=== PATIENT | female | born 1960 | race African-American/Black ===

== ENCOUNTER 2020-09-20 09:36 | Day surgery (SDC) | payer MEDICARE ==
[2020-09-20] MEDS ORDERED: Decadron 4 MG INJ IV ONE (09:37)
[2020-09-20] MEDS ORDERED: LIDOCAINE HCL 2% 100 MG/5 ML IJ ONE (09:37)
[2020-09-20] MEDS ORDERED: DIPRIVAN 200 MG/20 ML IV ONE ×2 (10:00→10:53)
--- NOTE | 2020-09-20 11:29 | XRAY ---
Indication: Left C2-C4 MBB. Intraoperative fluoroscopy provided for 25 seconds. 2 digital spot images submitted for interpretation demonstrates posterior needle tips projecting over the expected left C2-C4 nerve roots. Correlate with intraoperative findings/report.
--- NOTE | 2020-09-20 11:39 | XRAY ---
25 seconds fluoroscopy time in surgery for C2-C4 MBB.
[2020-09-20] MEDS ORDERED: Lactated Ringers 1,000 ML IV ONE (16:09)
== END 2020-09-20 11:21 | disposition home or self-care (01) ==
LOC: SDC-PAIN 09:36
PROVIDERS: ATTEND Psychiatry & Neurology Pain Medicine
DX: M47.812 Spondylosis without myelopathy or radiculopathy, cervical region (principal); E11.9 Type 2 diabetes mellitus without complications; J44.9 Chronic obstructive pulmonary disease, unspecified; E78.5 Hyperlipidemia, unspecified; M79.7 Fibromyalgia; G47.00 Insomnia, unspecified; Z79.899 Other long term (current) drug therapy
CPT/HCPCS: 64490; 64491; 72040; 77002; 82947; J1100; J2704

== ENCOUNTER 2023-05-28 09:27 | Day surgery (SDC) | payer MEDICARE ==
[2023-05-28] MEDS ORDERED: Decadron 4 MG INJ IV ONE (09:28)
[2023-05-28] MEDS ORDERED: Sodium Chloride 0.9(Preservative Free) 10 ML IJ ONE (09:28)
[2023-05-28] MEDS ORDERED: DIPRIVAN 200 MG/20 ML IV ONE (10:53)
[2023-05-28] MEDS ORDERED: Lactated Ringers 1,000 ML IV ONE (11:20)
--- NOTE | 2023-05-28 12:17 | XRAY ---
Indication: Left L4-S1 transforaminal ARSEN. Intraoperative fluoroscopy provided for 39 seconds. 4 digital spot image submitted for interpretation demonstrates posterior needle tips projecting overexpanded left L4 and L5 nerve roots. Small amount of contrast injected for needle tip placement. Correlate with intraoperative findings/report.
--- NOTE | 2023-05-28 12:21 | XRAY ---
39 seconds of fluoroscopy was used in surgery for a left L4-S1 transforaminal ARSEN.
== END 2023-05-28 11:24 | disposition home or self-care (01) ==
LOC: SDC-PAIN 09:27
PROVIDERS: ATTEND Psychiatry & Neurology Pain Medicine
DX: M54.16 Radiculopathy, lumbar region (principal); Z79.899 Other long term (current) drug therapy
CPT/HCPCS: 64483; 64484; 72100; 77003; J1100; J2704; Q9966

== ENCOUNTER 2023-07-09 11:12 | Day surgery (SDC) | payer MEDICARE ==
[2023-07-09] MEDS ORDERED: LIDOCAINE HCL 2% 100 MG/5 ML IJ ONE (11:13)
[2023-07-09] MEDS ORDERED: Lactated Ringers 1,000 ML IV ONE (13:52)
[2023-07-09] MEDS ORDERED: DIPRIVAN 200 MG/20 ML IV ONE (14:14)
--- NOTE | 2023-07-09 15:17 | XRAY ---
Indication: Bilateral L4-S1 MBB. Intraoperative fluoroscopy provided 15 seconds. 2 digital spot image submitted for interpretation demonstrates posterior needle tips projecting over the expected left and right L4-S1 nerve roots. Correlate with intraoperative findings/report.
--- NOTE | 2023-07-09 16:42 | XRAY ---
15 seconds of fluoroscopy was used in surgery for a bilateral L4-S1 MBB.
== END 2023-07-09 14:42 | disposition home or self-care (01) ==
LOC: SDC-PAIN 11:12
PROVIDERS: ATTEND Psychiatry & Neurology Pain Medicine
DX: M47.816 Spondylosis without myelopathy or radiculopathy, lumbar region (principal)
CPT/HCPCS: 64493; 64494; 72020; 77002; J2704

== ENCOUNTER 2023-08-20 13:35 | Day surgery (SDC) | payer MEDICARE ==
[2023-08-20] MEDS ORDERED: BUPIVACAINE 0.5% VIAL IJ ONE (13:36)
[2023-08-20] MEDS ORDERED: BENADRYL 50 MG/ML ONE (15:56)
[2023-08-20] MEDS ORDERED: DIPRIVAN 200 MG/20 ML IV ONE (17:01)
[2023-08-20] MEDS ORDERED: Lactated Ringers 1,000 ML IV ONE (18:16)
--- NOTE | 2023-08-20 19:14 | XRAY ---
Indication: Bilateral L4-S1 MBB. Intraoperative fluoroscopy provided for 21 seconds. Single digital spot image submitted for interpretation demonstrates posterior needle tips projecting over the expected left and right L4-S1 nerve roots. Correlate with intraoperative findings/report.
--- NOTE | 2023-08-21 09:19 | XRAY ---
21 seconds of fluoroscopy was used in surgery for a bilateral L4-S1 MBB.
== END 2023-08-20 17:26 | disposition home or self-care (01) ==
LOC: SDC-PAIN 13:35
PROVIDERS: ATTEND Psychiatry & Neurology Pain Medicine
DX: M47.816 Spondylosis without myelopathy or radiculopathy, lumbar region (principal)
CPT/HCPCS: 64493; 64494; 72020; 77002; J1200; J2704

== ENCOUNTER 2023-09-18 13:39 | Day surgery (SDC) | payer MEDICARE ==
[2023-09-18] MEDS ORDERED: BUPIVACAINE 0.5% VIAL IJ ONE (13:40)
[2023-09-18] MEDS ORDERED: Depo-Medrol 40 MG/ML IM ONE (13:40)
[2023-09-18] MEDS ORDERED: LIDOCAINE HCL 1% 50 MG/5 ML VL PF IJ ONE (13:40)
[2023-09-18] MEDS ORDERED: DIPRIVAN 200 MG/20 ML IV ONE (14:58)
[2023-09-18] MEDS ORDERED: BENADRYL 50 MG/ML ONE (14:59)
[2023-09-18] MEDS ORDERED: Lactated Ringers 1,000 ML IV ONE (15:23)
--- NOTE | 2023-09-18 16:31 | XRAY ---
Indication: Left L4-S1 RFA. Intraoperative fluoroscopy provided for 25 seconds. 5 digital spot image submitted for interpretation demonstrates posterior needle tips projecting over the expected left L4-S1 nerve roots. Correlate with intraoperative findings/report.
--- NOTE | 2023-09-18 16:43 | XRAY ---
25 seconds of fluoroscopy was used in surgery for a left L4-S1 RFA.
== END 2023-09-18 15:35 | disposition home or self-care (01) ==
LOC: SDC-PAIN 13:39
PROVIDERS: ATTEND Psychiatry & Neurology Pain Medicine
DX: M47.816 Spondylosis without myelopathy or radiculopathy, lumbar region (principal)
CPT/HCPCS: 64635; 64636; 72100; 77002; J1010; J1200; J2001; J2704; J1030

== ENCOUNTER 2023-09-24 10:40 | Day surgery (SDC) | payer MEDICARE ==
[2023-09-24] MEDS ORDERED: Depo-Medrol 40 MG/ML IM ONE (10:41)
[2023-09-24] MEDS ORDERED: LIDOCAINE HCL 1% 50 MG/5 ML VL PF IJ ONE (10:41)
[2023-09-24] MEDS ORDERED: BUPIVACAINE 0.5% VIAL IJ ONE (10:41)
[2023-09-24] MEDS ORDERED: BENADRYL 50 MG/ML ONE (11:59)
[2023-09-24] MEDS ORDERED: DIPRIVAN 200 MG/20 ML IV ONE (12:54)
[2023-09-24] MEDS ORDERED: Lactated Ringers 1,000 ML IV ONE (13:46)
--- NOTE | 2023-09-24 15:11 | XRAY ---
Indication: Right L4-S1 RFA. Intraoperative fluoroscopy provided for 27 seconds. 3 digital spot image submitted for interpretation demonstrates posterior needle tips projecting over the expected right L4-S1 nerve roots. Correlate with intraoperative findings/report.
--- NOTE | 2023-09-24 15:16 | XRAY ---
27 seconds of fluoroscopy was used in surgery for a right L4-S1 RFA.
== END 2023-09-24 13:30 | disposition home or self-care (01) ==
LOC: SDC-PAIN 10:40
PROVIDERS: ATTEND Psychiatry & Neurology Pain Medicine
DX: M47.816 Spondylosis without myelopathy or radiculopathy, lumbar region (principal)
CPT/HCPCS: 64635; 64636; 72100; 77002; J1010; J1200; J2001; J2704

== ENCOUNTER 2023-11-12 08:37 | Day surgery (SDC) | payer MEDICARE ==
[2023-11-12] MEDS ORDERED: Depo-Medrol 40 MG/ML IM ONE (08:38)
[2023-11-12] MEDS ORDERED: BUPIVACAINE 0.5% VIAL IJ ONE (08:38)
[2023-11-12] MEDS ORDERED: BENADRYL 50 MG/ML ONE (10:06)
[2023-11-12] MEDS ORDERED: DIPRIVAN 200 MG/20 ML IV ONE (11:07)
[2023-11-12] MEDS ORDERED: Lactated Ringers 1,000 ML IV ONE (11:47)
--- NOTE | 2023-11-12 12:38 | XRAY ---
Indication: Left SI joint injection. Intraoperative fluoroscopy provided for 22 seconds. Single digital spot images submitted for interpretation demonstrates posterior needle tip projecting over the left SI joint. Small amount of contrast injected for needle tip placement. Correlate with intraoperative findings/report.
--- NOTE | 2023-11-12 13:36 | XRAY ---
22 seconds of fluoroscopy was used in surgery for a left sacroiliac joint injection.
== END 2023-11-12 11:57 | disposition home or self-care (01) ==
LOC: SDC-PAIN 08:37
PROVIDERS: ATTEND Psychiatry & Neurology Pain Medicine
DX: M46.1 Sacroiliitis, not elsewhere classified (principal)
CPT/HCPCS: 01992; 27096; 72170; 77002; G0260; J1010; J1200; J2704; Q9966

== ENCOUNTER 2024-01-07 09:30 | Day surgery (SDC) | payer MEDICARE ==
[2024-01-07] MEDS ORDERED: Decadron 4 MG INJ IV ONE (09:31)
[2024-01-07] MEDS ORDERED: Sodium Chloride 0.9(Preservative Free) 10 ML IJ ONE (09:31)
[2024-01-07] MEDS ORDERED: DIPRIVAN 200 MG/20 ML IV ONE (11:02)
[2024-01-07] MEDS ORDERED: BENADRYL 50 MG/ML ONE (11:17)
--- NOTE | 2024-01-07 11:57 | XRAY ---
Indication: Left L4-S1 transforaminal ARSEN. Intraoperative fluoroscopy provided for 45 seconds. Single digital spot image submitted for interpretation demonstrates posterior needle tips projecting over the expected left L4 and L5 nerve roots. Small amount of contrast injected for needle tip placement. Correlate with intraoperative findings/report.
--- NOTE | 2024-01-07 13:40 | XRAY ---
45 seconds of fluoroscopy was used in surgery for a left L4-S1 transforaminal ARSEN.
[2024-01-07] MEDS ORDERED: Lactated Ringers 1,000 ML IV ONE (15:00)
== END 2024-01-07 11:37 ==
LOC: SDC-PAIN 09:30
PROVIDERS: ATTEND Psychiatry & Neurology Pain Medicine
DX: M54.16 Radiculopathy, lumbar region (principal)
CPT/HCPCS: 64483; 64484; 72100; 77003; J1100; J1200; J2704; Q9966